=== PATIENT | female | born 1960 | race Caucasian/White ===

== ENCOUNTER 2018-06-22 03:47 | Inpatient (IN) | payer OTHER ==
[2018-06-22] MEDS ORDERED: NACL 0.9% 3 ML SYG IV (06:30)
[2018-06-22] MEDS: DEXTROSE 5%-0.45% NACL 1,000 ML IV (06:48)
[2018-06-22] MEDS: SOD CHLORIDE 0.9% 500 ML IV (07:52)
[2018-06-22 09:44] LABS: ADD MAN DIFF? NO
[2018-06-22 09:50] LABS: WHITE BLOOD COUNT 3.8 10^3/ul (4.8-10.8)
[2018-06-22 09:50] LABS: ABNORMAL IP MESSAGE 1; BASOPHILS % 0.5 % (0.0-2.0); EOSINOPHILS % 0.3 % (0.0-7.0); HEMATOCRIT 43.9 % (37.0-47.0); HEMOGLOBIN 14.2 g/dl (12.0-16.0); LYMPHOCYTES # 0.4 10^3/ul (0.8-2.9); LYMPHOCYTES % 9.4 % (15.0-51.0); MEAN CORPUSCULAR HEMOGLOBIN 28.6 pg (29.0-33.0); MEAN CORPUSCULAR HGB CONC 32.3 g/dl (32.0-37.0); MEAN CORPUSCULAR VOLUME 88.5 fl (82.0-101.0); MEAN PLATELET VOLUME 11.2 fl (7.4-10.4); MONOCYTE # 0.1 10^3/ul (0.3-0.9); MONOCYTES % 3.4 % (0.0-11.0); NEUTROPHIL # 3.3 10^3/ul (1.6-7.5); NEUTROPHILS % 86.1 % (39.0-77.0); PLATELET COUNT 159 10^3/UL (140-415); RED BLOOD COUNT 4.96 10^6/ul (4.20-5.40); RED CELL DISTRIBUTION WIDTH 13.2 % (11.5-14.5)
[2018-06-22 09:51] LABS: POSITIVE DIFF @See below
[2018-06-22] MEDS: SOD CHLORIDE 0.9% 1,000 ML IV ×4 (10:13→22:53)
[2018-06-22 10:23] LABS: ALANINE AMINOTRANSFERASE 121 IU/L (13-69); ALBUMIN/GLOBULIN RATIO 1.25; ALKALINE PHOSPHATASE 63 IU/L (42-121); ANION GAP 13 (5-13); ASPARTATE AMINO TRANSFERASE 92 IU/L (15-46); BLOOD UREA NITROGEN 27 mg/dl (7-20); CALCIUM 7.5 mg/dl (8.4-10.2); CARBON DIOXIDE 21 mmol/L (21-31); CHLORIDE 108 mmol/L (97-110); CHOL/HDL RATIO 2.2 RATIO; CHOLESTEROL 118 mg/dl (100-200); CREATININE 1.17 mg/dl (0.44-1.00); Estimated GFR 48 mL/min (>60); GLUCOSE 115 mg/dl (70-220); HDL CHOLESTEROL 53 mg/dl (37-92); LDL CHOLESTEROL,CALCULATED 53 mg/dl; POTASSIUM 3.7 mmol/L (3.5-5.1); SODIUM 142 mmol/L (135-144); TOTAL PROTEIN 5.4 g/dl (6.1-8.1); TRIGLYCERIDES 61 mg/dl (0-149)
[2018-06-22 10:24] LABS: HEMOGLOBIN A1C 5.4 % (0-5.9)
[2018-06-22 10:46] LABS: ANISOCYTOSIS 1+ (0-0); BAND NEUTROPHILS #M 0.4 10^3/ul (0.0-0.6); BAND NEUTROPHILS % (M) 12 % (0-4); BURR CELLS 1+ (0-0); EOSINOPHILS % (M) 2 % (0-7); LYMPHOCYTES #M 0.2 10^3/ul (0.8-2.9); LYMPHOCYTES % (M) 6 % (15-51); MICROCYTOSIS 1+ (0-0); MONOCYTE #M 0.1 10^3/ul (0.3-0.9); MONOCYTES % (M) 4 % (0-11); PLATELET ESTIMATE NORMAL; POIKILOCYTOSIS 1+ (0-0); POLYCHROMASIA 1+ (0-0); SEG NEUT #M 2.9 10^3/ul (1.6-7.5); SEGMENTED NEUTROPHILS (M) % 76 % (39-77); SMUDGE%M 5 % (0-0); TEAR DROP CELLS 1+ (0-0)
[2018-06-22] MEDS: morphine 2 MG INJ IV ×2 (11:12→19:24)
[2018-06-22] MEDS: ONDANSETRON 4 MG INJ IV (11:12)
[2018-06-22] MEDS: PIPER-TAZO 3.375 GM IV (PMX) 100 ML IVPB ×2 (13:10→17:21)
[2018-06-22] MEDS: LEVOTHYROXINE 100 MCG VIAL IV (13:11)
[2018-06-22] MEDS: ACETAMINOPHEN 1000MG/100ML IV 100 ML IVPB ×2 (13:21→23:25)
[2018-06-22] MEDS ORDERED: BARIUM SULF 2% 450 ML BTL (BERRY SMOOTHIE) PO (13:30)
[2018-06-22] MEDS: IOHEXOL 100 ML (14:24)
[2018-06-22] MEDS: SOD CHLORIDE 0.9% 100 ML (14:24)
[2018-06-22] MEDS: BARIUM SULF 2% 450 ML BTL (BERRY SMOOTHIE) PO (14:30)
[2018-06-22 16:10] LABS: LACTIC ACID 2.1 mmol/L (0.5-2.0)
[2018-06-23] MEDS: PIPER-TAZO 3.375 GM IV (PMX) 100 ML IVPB ×3 (00:14→11:44)
[2018-06-23] MEDS: SOD CHLORIDE 0.9% 1,000 ML IV ×4 (01:09→17:32)
[2018-06-23] MEDS: LEVOTHYROXINE 100 MCG VIAL IV (05:45)
[2018-06-23 06:36] LABS: WHITE BLOOD COUNT 4.7 10^3/ul (4.8-10.8)
[2018-06-23 06:36] LABS: ABNORMAL IP MESSAGE 1; HEMATOCRIT 39.5 % (37.0-47.0); HEMOGLOBIN 12.9 g/dl (12.0-16.0); MEAN CORPUSCULAR HEMOGLOBIN 28.9 pg (29.0-33.0); MEAN CORPUSCULAR HGB CONC 32.7 g/dl (32.0-37.0); MEAN CORPUSCULAR VOLUME 88.6 fl (82.0-101.0); MEAN PLATELET VOLUME 11.4 fl (7.4-10.4); PLATELET COUNT 127 10^3/UL (140-415); RED BLOOD COUNT 4.46 10^6/ul (4.20-5.40); RED CELL DISTRIBUTION WIDTH 13.5 % (11.5-14.5)
[2018-06-23 06:47] LABS: ADD MAN DIFF? YES; POSITIVE DIFF @See below
[2018-06-23 07:08] LABS: ANION GAP 9 (5-13); BLOOD UREA NITROGEN 29 mg/dl (7-20); CALCIUM 6.7 mg/dl (8.4-10.2); CARBON DIOXIDE 23 mmol/L (21-31); CHLORIDE 109 mmol/L (97-110); CREATININE 1.11 mg/dl (0.44-1.00); Estimated GFR 51 mL/min (>60); GLUCOSE 86 mg/dl (70-220); MAGNESIUM 1.7 mg/dl (1.7-2.5); PHOSPHORUS 3.8 mg/dl (2.5-4.9); POTASSIUM 3.8 mmol/L (3.5-5.1); SODIUM 141 mmol/L (135-144)
[2018-06-23 07:28] LABS: LIPASE 1893 U/L (23-300)
[2018-06-23 07:29] LABS: HEPATITIS B SURFACE ANTIGEN NEGATIVE (NEGATIVE)
[2018-06-23 07:47] LABS: HEPATITIS C VIRAL ANTIBODY NEGATIVE (NEGATIVE)
[2018-06-23] MEDS: morphine 2 MG INJ IV (08:34)
[2018-06-23] MEDS: ONDANSETRON 4 MG INJ IV (08:36)
[2018-06-23 09:57] LABS: ANISOCYTOSIS 1+ (0-0); BAND NEUTROPHILS #M 1.8 10^3/ul (0.0-0.6); BAND NEUTROPHILS % (M) 40 % (0-4); BASOPHILS % (M) 1 % (0-2); ERYTHROBLAST% (NRBC) (M) 1 % (0-0); GIANT THROMBO% (M) 2 % (0-0); LYMPHOCYTES #M 0.9 10^3/ul (0.8-2.9); LYMPHOCYTES % (M) 20 % (15-51); METAMYELOCYTES #M 0.4 10^3/ul (0.0-0.0); METAMYELOCYTES %M 9 % (0-0); MONOCYTE #M 0.6 10^3/ul (0.3-0.9); MONOCYTES % (M) 14 % (0-11); MYELOCYTES % (M) 2 % (0-0); PLATELET ESTIMATE DECREASED; POLYCHROMASIA 1+ (0-0); REACTIVE LYMPHOCYTES% (M) 2 % (0-0); SEG NEUT #M 0.6 10^3/ul (1.6-7.5); SEGMENTED NEUTROPHILS (M) % 12 % (39-77); SMUDGE%M 9 % (0-0)
[2018-06-23 11:54] LABS: ALANINE AMINOTRANSFERASE 79 IU/L (13-69); ALBUMIN 2.6 g/dl (3.3-4.9); ALKALINE PHOSPHATASE 50 IU/L (42-121); ASPARTATE AMINO TRANSFERASE 53 IU/L (15-46); BILIRUBIN,INDIRECT 0.9 mg/dl (0-1.1); BILIRUBIN,TOTAL 0.9 mg/dl (0.2-1.3)
[2018-06-23 11:56] LABS: LACTIC ACID 1.7 mmol/L (0.5-2.0)
[2018-06-23] MEDS: LORAZEPAM 2 MG INJ IV (12:25)
[2018-06-23] MEDS ORDERED: VITAMIN A & D 5 GM OINT PACKET TOP (12:39)
[2018-06-23] MEDS: ACETAMINOPHEN 1000MG/100ML IV 100 ML IVPB (13:43)
[2018-06-23] MEDS ORDERED: MEROPENEM 1 GM/50ML(PMX) 50 ML IVPB ×2 (20:00→22:00)
[2018-06-23] MEDS: MEROPENEM 1 GM/50ML(PMX) 50 ML IVPB (21:54)
[2018-06-24] MEDS: SOD CHLORIDE 0.9% 1,000 ML IV ×5 (00:04→14:03)
[2018-06-24] MEDS: LORAZEPAM 2 MG INJ IV ×2 (02:08→15:55)
[2018-06-24] MEDS: morphine 2 MG INJ IV ×2 (04:07→23:58)
[2018-06-24 05:20] LABS: WHITE BLOOD COUNT 5.4 10^3/ul (4.8-10.8)
[2018-06-24 05:20] LABS: ABNORMAL IP MESSAGE 1; HEMATOCRIT 35.2 % (37.0-47.0); HEMOGLOBIN 11.5 g/dl (12.0-16.0); MEAN CORPUSCULAR HEMOGLOBIN 28.7 pg (29.0-33.0); MEAN CORPUSCULAR HGB CONC 32.7 g/dl (32.0-37.0); MEAN CORPUSCULAR VOLUME 87.8 fl (82.0-101.0); MEAN PLATELET VOLUME 11.3 fl (7.4-10.4); PLATELET COUNT 113 10^3/UL (140-415); RED BLOOD COUNT 4.01 10^6/ul (4.20-5.40); RED CELL DISTRIBUTION WIDTH 13.6 % (11.5-14.5)
[2018-06-24] MEDS: MEROPENEM 1 GM/50ML(PMX) 50 ML IVPB ×3 (05:42→22:18)
[2018-06-24] MEDS: LEVOTHYROXINE 100 MCG VIAL IV (05:42)
[2018-06-24 05:45] LABS: ADD MAN DIFF? YES; POSITIVE DIFF @See below
[2018-06-24 06:24] LABS: ALANINE AMINOTRANSFERASE 54 IU/L (13-69); ALBUMIN 2.9 g/dl (3.3-4.9); ALBUMIN/GLOBULIN RATIO 1.03; ALKALINE PHOSPHATASE 70 IU/L (42-121); ANION GAP 13 (5-13); ASPARTATE AMINO TRANSFERASE 50 IU/L (15-46); BILIRUBIN,INDIRECT 0.7 mg/dl (0-1.1); BILIRUBIN,TOTAL 0.7 mg/dl (0.2-1.3); BLOOD UREA NITROGEN 18 mg/dl (7-20); CALCIUM 6.8 mg/dl (8.4-10.2); CARBON DIOXIDE 18 mmol/L (21-31); CHLORIDE 116 mmol/L (97-110); CREATININE 0.71 mg/dl (0.44-1.00); Estimated GFR > 60 mL/min (>60); GLUCOSE 82 mg/dl (70-220); POTASSIUM 3.4 mmol/L (3.5-5.1); SODIUM 147 mmol/L (135-144); TOTAL PROTEIN 5.7 g/dl (6.1-8.1)
[2018-06-24 06:34] LABS: LIPASE 709 U/L (23-300)
[2018-06-24] MEDS ORDERED: ETOMIDATE 20 MG INJ (07:00)
[2018-06-24] MEDS ORDERED: ROCURONIUM 50 MG INJ (07:00)
[2018-06-24 07:50] LABS: ANISOCYTOSIS 1+ (0-0); BAND NEUTROPHILS #M 2.5 10^3/ul (0.0-0.6); BAND NEUTROPHILS % (M) 47 % (0-4); BURR CELLS 1+ (0-0); ERYTHROBLAST% (NRBC) (M) 1 % (0-0); LYMPHOCYTES #M 0.5 10^3/ul (0.8-2.9); LYMPHOCYTES % (M) 11 % (15-51); METAMYELOCYTES %M 1 % (0-0); MICROCYTOSIS 1+ (0-0); MONOCYTE #M 0.2 10^3/ul (0.3-0.9); MONOCYTES % (M) 5 % (0-11); MYELOCYTES #M 0.1 10^3/ul (0.0-0.0); MYELOCYTES % (M) 2 % (0-0); PLATELET ESTIMATE DECREASED; POIKILOCYTOSIS 2+ (0-0); REACTIVE LYMPHOCYTES% (M) 1 % (0-0); SEG NEUT #M 1.9 10^3/ul (1.6-7.5); SEGMENTED NEUTROPHILS (M) % 33 % (39-77); SMUDGE%M 4 % (0-0); TOXIC GRANULATION 1+ (0-0)
[2018-06-24] MEDS ORDERED: GLUCOSE GEL 15 GRAM TUBE PO ×2 (09:00)
[2018-06-24] MEDS ORDERED: GLUCAGON 1 MG INJ IM (09:00)
[2018-06-24] MEDS ORDERED: DEXTROSE 50% 50 ML SYRINGE IV ×2 (09:00)
[2018-06-24] MEDS ORDERED: GLUCOSE GEL 15 GRAM TUBE BUCCAL (09:00)
[2018-06-24] MEDS: DEXTROSE 5%-0.45% NACL 1,000 ML IV (09:17)
[2018-06-24] MEDS ORDERED: INSULIN ASPART [NOVOLOG] 3 ML PEN SC (11:30)
[2018-06-24 11:55] LABS: ADD UMIC YES; UR AMORPHOUS CRYSTAL FEW /HPF (NONE SEEN); UR ASCORBIC ACID NEGATIVE (NEGATIVE); UR BACTERIA FEW /HPF (NONE SEEN); UR BILIRUBIN (Dip) NEGATIVE (NEGATIVE); UR BLOOD (Dip) 3+ mg/dL (NEGATIVE); UR CLARITY SLIGHTLY CLOUDY (CLEAR); UR COLOR YELLOW (YELLOW); UR GLUCOSE (Dip) 1+ mg/dL (NEGATIVE); UR KETONES (Dip) 2+ mg/dL (NEGATIVE); UR LEUKOCYTE ESTERASE (Dip) NEGATIVE Leu/ul (NEGATIVE); UR NITRITE (Dip) NEGATIVE (NEGATIVE); UR RBC 152 /HPF (0-5); UR SPECIFIC GRAVITY (Dip) 1.019 (1.003-1.030); UR SQUAMOUS EPITHELIAL CELL FEW /HPF (FEW); UR TOTAL PROTEIN (Dip) 2+ mg/dl (NEGATIVE); UR UROBILINOGEN (Dip) NEGATIVE (NEGATIVE); UR WBC 9 /HPF (0-5)
[2018-06-24 13:00] LABS: LACTIC ACID 0.8 mmol/L (0.5-2.0)
[2018-06-24] MEDS: CALCIUM GLUCONATE 10% 1 GM in DEXTROSE 5% 100 ML IVPB (15:34)
[2018-06-24 17:00] LABS: AADO2 Arterial 88.5 mmHg (7.0-24.0); Allen Test ACCEPTAB; Arterial Base Excess -10.7 mmol/L (-3.0-3); Arterial COHb 0.3 % (0.0-3.0); Arterial Fraction of Oxyhgb 95.3 % (93.0-99.0); Arterial HCO3 17.2 mmol/L (22.0-26.0); Arterial MetHb 0.4 % (0.0-1.5); Arterial Total Hemglobin 12.4 g/dl (12.0-18.0); Arterial pCO2 46.3 mmhg (35-45); MODE NASAL CANNULA; Site Left Radial
[2018-06-24] MEDS ORDERED: FUROSEMIDE 40 MG INJ (17:12)
[2018-06-24] MEDS ORDERED: NA BICARBONATE 8.4% 50 ML SYG (17:13)
[2018-06-24 17:25] LABS: B-TYPE NATRIURETIC PEPTIDE 3640 PG/ML (0-125)
[2018-06-24] MEDS ORDERED: PROPOFOL 100 ML (17:38)
[2018-06-24] MEDS: PROPOFOL 100 ML IV (17:49)
[2018-06-24] MEDS: FUROSEMIDE 40 MG INJ IV (17:50)
[2018-06-24] MEDS: NA BICARBONATE 8.4% 50 ML SYG IV (17:51)
[2018-06-24] MEDS: HALOPERIDOL 5 MG INJ IM (17:52)
[2018-06-24] MEDS ORDERED: PROPOFOL 100 ML IV (18:00)
[2018-06-24 19:27] LABS: ALANINE AMINOTRANSFERASE 52 IU/L (13-69); ALBUMIN 3.3 g/dl (3.3-4.9); ALBUMIN/GLOBULIN RATIO 1.03; ALKALINE PHOSPHATASE 88 IU/L (42-121); ANION GAP 14 (5-13); ASPARTATE AMINO TRANSFERASE 50 IU/L (15-46); BILIRUBIN,INDIRECT 0.7 mg/dl (0-1.1); BILIRUBIN,TOTAL 0.7 mg/dl (0.2-1.3); BLOOD UREA NITROGEN 17 mg/dl (7-20); CALCIUM 7.6 mg/dl (8.4-10.2); CARBON DIOXIDE 18 mmol/L (21-31); CHLORIDE 115 mmol/L (97-110); CREATININE 0.68 mg/dl (0.44-1.00); Estimated GFR > 60 mL/min (>60); GLUCOSE 115 mg/dl (70-220); SODIUM 147 mmol/L (135-144); TOTAL PROTEIN 6.5 g/dl (6.1-8.1)
[2018-06-24 19:33] LABS: POTASSIUM 2.9 mmol/L (3.5-5.1)
[2018-06-24 20:21] LABS: ADD UMIC YES; UR ASCORBIC ACID NEGATIVE (NEGATIVE); UR BACTERIA FEW /HPF (NONE SEEN); UR BILIRUBIN (Dip) NEGATIVE (NEGATIVE); UR BLOOD (Dip) 3+ mg/dL (NEGATIVE); UR CLARITY CLOUDY (CLEAR); UR COLOR RED (YELLOW); UR GLUCOSE (Dip) NEGATIVE (NEGATIVE); UR KETONES (Dip) TRACE mg/dL (NEGATIVE); UR LEUKOCYTE ESTERASE (Dip) NEGATIVE Leu/ul (NEGATIVE); UR NITRITE (Dip) NEGATIVE (NEGATIVE); UR RBC > 182 /HPF (0-5); UR SPECIFIC GRAVITY (Dip) 1.006 (1.003-1.030); UR TOTAL PROTEIN (Dip) 2+ mg/dl (NEGATIVE); UR UROBILINOGEN (Dip) NEGATIVE (NEGATIVE); UR WBC 14 /HPF (0-5)
[2018-06-24 21:14] LABS: AADO2 Arterial 279.7 mmHg (7.0-24.0); Allen Test ACCEPTAB; Arterial Base Excess -5.2 mmol/L (-3.0-3); Arterial Blood Gas Oxygen Sat 99.1 mmHG (95.0-98.0); Arterial COHb 0.3 % (0.0-3.0); Arterial Fraction of Oxyhgb 98.6 % (93.0-99.0); Arterial MetHb 0.2 % (0.0-1.5); Arterial Total Hemglobin 11.7 g/dl (12.0-18.0); Arterial pCO2 38.1 mmhg (35-45); MODE VENT - AC; Site Right Radial
[2018-06-24] MEDS: POTASSIUM CHLORIDE 100 ML IVPB (21:24)
[2018-06-25] MEDS: POTASSIUM CHLORIDE 100 ML IVPB ×2 (00:28→01:57)
[2018-06-25] MEDS: LORAZEPAM 2 MG INJ IV (00:37)
[2018-06-25 01:24] LABS: AADO2 Arterial 103.4 mmHg (7.0-24.0); Allen Test ACCEPTAB; Arterial Base Excess -2.9 mmol/L (-3.0-3); Arterial Blood Gas Oxygen Sat 95.6 mmHG (95.0-98.0); Arterial COHb 0.3 % (0.0-3.0); Arterial Fraction of Oxyhgb 95.1 % (93.0-99.0); Arterial MetHb 0.2 % (0.0-1.5); Arterial Total Hemglobin 11.6 g/dl (12.0-18.0); Arterial pCO2 44.3 mmhg (35-45); MODE NASAL CANNULA; Site Right Radial
[2018-06-25] MEDS ORDERED: ACCU-CHEK XX (02:00)
[2018-06-25] MEDS: morphine 2 MG INJ IV ×4 (04:49→22:19)
[2018-06-25 05:53] LABS: WHITE BLOOD COUNT 5.7 10^3/ul (4.8-10.8)
[2018-06-25 05:53] LABS: ABNORMAL IP MESSAGE 1; HEMATOCRIT 32.3 % (37.0-47.0); HEMOGLOBIN 10.8 g/dl (12.0-16.0); MEAN CORPUSCULAR HGB CONC 33.4 g/dl (32.0-37.0); MEAN CORPUSCULAR VOLUME 86.8 fl (82.0-101.0); MEAN PLATELET VOLUME 11.2 fl (7.4-10.4); NUCLEATED RED BLOOD CELLS% 0.3 /100WBC (0.0-0.0); PLATELET COUNT 91 10^3/UL (140-415); RED BLOOD COUNT 3.72 10^6/ul (4.20-5.40); RED CELL DISTRIBUTION WIDTH 14.2 % (11.5-14.5)
[2018-06-25] MEDS: PROPOFOL 100 ML IV (06:00)
[2018-06-25 06:05] LABS: ADD MAN DIFF? YES; POSITIVE DIFF @See below
[2018-06-25 06:09] LABS: AMYLASE 95 U/L (11-123)
[2018-06-25 06:12] LABS: ANION GAP 7 (5-13); BLOOD UREA NITROGEN 17 mg/dl (7-20); CALCIUM 7.7 mg/dl (8.4-10.2); CARBON DIOXIDE 25 mmol/L (21-31); CHLORIDE 115 mmol/L (97-110); CREATININE 0.78 mg/dl (0.44-1.00); Estimated GFR > 60 mL/min (>60); GLUCOSE 101 mg/dl (70-220); MAGNESIUM 2.2 mg/dl (1.7-2.5); PHOSPHORUS 1.2 mg/dl (2.5-4.9); POTASSIUM 3.3 mmol/L (3.5-5.1); SODIUM 147 mmol/L (135-144)
[2018-06-25] MEDS: SOD CHLORIDE 0.9% 1,000 ML IV (06:53)
[2018-06-25] MEDS: MEROPENEM 1 GM/50ML(PMX) 50 ML IVPB ×3 (06:57→21:24)
[2018-06-25] MEDS: LEVOTHYROXINE 100 MCG VIAL IV (06:57)
[2018-06-25 07:08] LABS: ANISOCYTOSIS 1+ (0-0); BAND NEUTROPHILS #M 0.1 10^3/ul (0.0-0.6); BAND NEUTROPHILS % (M) 2 % (0-4); ERYTHROBLAST% (NRBC) (M) 3 % (0-0); GIANT THROMBO% (M) 1 % (0-0); LYMPHOCYTES #M 1.2 10^3/ul (0.8-2.9); LYMPHOCYTES % (M) 22 % (15-51); MICROCYTOSIS 1+ (0-0); MONOCYTE #M 0.4 10^3/ul (0.3-0.9); MONOCYTES % (M) 8 % (0-11); PLATELET ESTIMATE DECREASED; REACTIVE LYMPHOCYTES #M 0.1 10^3/ul (0.0-0.0); REACTIVE LYMPHOCYTES% (M) 3 % (0-0); SEG NEUT #M 3.7 10^3/ul (1.6-7.5); SEGMENTED NEUTROPHILS (M) % 65 % (39-77); SMUDGE%M 12 % (0-0)
[2018-06-25 07:11] LABS: LIPASE 139 U/L (23-300)
[2018-06-25 07:39] LABS: AADO2 Arterial 76.4 mmHg (7.0-24.0); Allen Test ACCEPTAB; Arterial Base Excess -4.5 mmol/L (-3.0-3); Arterial Blood Gas Oxygen Sat 86.6 mmHG (95.0-98.0); Arterial COHb 0.9 % (0.0-3.0); Arterial Fraction of Oxyhgb 85.6 % (93.0-99.0); Arterial HCO3 23.2 mmol/L (22.0-26.0); Arterial MetHb 0.3 % (0.0-1.5); Arterial Total Hemglobin 13.6 g/dl (12.0-18.0); Arterial pCO2 53.2 mmhg (35-45); MODE NASAL CANNULA; Site Right Radial
[2018-06-25] MEDS: PANTOPRAZOLE 40 MG INJ IV (09:36)
[2018-06-25] MEDS: POTASSIUM PHOSPHATE 30 MM in SOD CHLORIDE 0.9% 250 ML IVPB (10:30)
[2018-06-25] MEDS: D5W-0.45 NACL + KCL 40 MEQ 1,000 ML IV (10:33)
[2018-06-25 11:59] LABS: AADO2 Arterial 207.1 mmHg (7.0-24.0); Allen Test ACCEPTAB; Arterial Base Excess -2.8 mmol/L (-3.0-3); Arterial Blood Gas Oxygen Sat 98.9 mmHG (95.0-98.0); Arterial COHb 0.3 % (0.0-3.0); Arterial Fraction of Oxyhgb 98.2 % (93.0-99.0); Arterial HCO3 23.6 mmol/L (22.0-26.0); Arterial MetHb 0.4 % (0.0-1.5); Arterial Total Hemglobin 11.5 g/dl (12.0-18.0); Blood Gas IEPAP 18/8; Blood Gas PS 10; MODE MASK - BIPAP; Site Right Radial
[2018-06-25 12:11] LABS: ANA PATTERN SPECKLED; ANA SCREEN POSITIVE (NEGATIVE)
[2018-06-25] MEDS: HALOPERIDOL 5 MG INJ IM ×2 (13:07→23:30)
[2018-06-26] MEDS: D5W-0.45 NACL + KCL 40 MEQ 1,000 ML IV (00:34)
[2018-06-26] MEDS: LORAZEPAM 2 MG INJ IV ×2 (03:46→04:39)
[2018-06-26] MEDS: HALOPERIDOL 5 MG INJ IM ×2 (04:39→11:01)
[2018-06-26] MEDS: MEROPENEM 1 GM/50ML(PMX) 50 ML IVPB ×3 (05:02→22:02)
[2018-06-26] MEDS: PANTOPRAZOLE 40 MG INJ IV (05:02)
[2018-06-26] MEDS: LEVOTHYROXINE 100 MCG VIAL IV (05:03)
[2018-06-26 05:10] LABS: ABNORMAL IP MESSAGE 1; HEMATOCRIT 30.1 % (37.0-47.0); HEMOGLOBIN 9.9 g/dl (12.0-16.0); MEAN CORPUSCULAR HEMOGLOBIN 28.6 pg (29.0-33.0); MEAN CORPUSCULAR HGB CONC 32.9 g/dl (32.0-37.0); MEAN PLATELET VOLUME 10.6 fl (7.4-10.4); PLATELET COUNT 79 10^3/UL (140-415); RED BLOOD COUNT 3.46 10^6/ul (4.20-5.40); RED CELL DISTRIBUTION WIDTH 14.8 % (11.5-14.5)
[2018-06-26 05:10] LABS: WHITE BLOOD COUNT 7.3 10^3/ul (4.8-10.8)
[2018-06-26 05:11] LABS: ADD MAN DIFF? YES; POSITIVE DIFF @See below
[2018-06-26] MEDS: ACETAMINOPHEN 1000MG/100ML IV 100 ML IVPB ×2 (05:15→16:09)
[2018-06-26 05:42] LABS: ALANINE AMINOTRANSFERASE 51 IU/L (13-69); ALBUMIN 2.6 g/dl (3.3-4.9); ALBUMIN/GLOBULIN RATIO 0.96; ALKALINE PHOSPHATASE 68 IU/L (42-121); ANION GAP 3 (5-13); ASPARTATE AMINO TRANSFERASE 50 IU/L (15-46); BILIRUBIN,INDIRECT 0.5 mg/dl (0-1.1); BILIRUBIN,TOTAL 0.5 mg/dl (0.2-1.3); BLOOD UREA NITROGEN 12 mg/dl (7-20); CALCIUM 7.8 mg/dl (8.4-10.2); CARBON DIOXIDE 32 mmol/L (21-31); CHLORIDE 118 mmol/L (97-110); CREATININE 0.52 mg/dl (0.44-1.00); Estimated GFR > 60 mL/min (>60); GLUCOSE 142 mg/dl (70-220); MAGNESIUM 2.1 mg/dl (1.7-2.5); POTASSIUM 3.5 mmol/L (3.5-5.1); SODIUM 153 mmol/L (135-144); TOTAL PROTEIN 5.3 g/dl (6.1-8.1)
[2018-06-26 07:09] LABS: ANISOCYTOSIS 1+ (0-0); BAND NEUTROPHILS #M 2.7 10^3/ul (0.0-0.6); BAND NEUTROPHILS % (M) 38 % (0-4); EOSINOPHILS % (M) 1 % (0-7); LYMPHOCYTES % (M) 14 % (15-51); METAMYELOCYTES %M 1 % (0-0); MONOCYTE #M 0.2 10^3/ul (0.3-0.9); MONOCYTES % (M) 4 % (0-11); PLATELET ESTIMATE DECREASED; POIKILOCYTOSIS 1+ (0-0); REACTIVE LYMPHOCYTES #M 0.4 10^3/ul (0.0-0.0); REACTIVE LYMPHOCYTES% (M) 6 % (0-0); SEG NEUT #M 2.8 10^3/ul (1.6-7.5); SEGMENTED NEUTROPHILS (M) % 36 % (39-77); SMUDGE%M 62 % (0-0); TOXIC GRANULATION 1+ (0-0)
[2018-06-26 07:57] LABS: AADO2 Arterial 81.4 mmHg (7.0-24.0); Arterial Base Excess 4.1 mmol/L (-3.0-3); Arterial Blood Gas Oxygen Sat 98.6 mmHG (95.0-98.0); Arterial COHb 0.3 % (0.0-3.0); Arterial HCO3 29.7 mmol/L (22.0-26.0); Arterial MetHb 0.3 % (0.0-1.5); Arterial Total Hemglobin 10.6 g/dl (12.0-18.0); Arterial pCO2 49.9 mmhg (35-45); MODE MASK - SIMPLE; Site Right Brachial
[2018-06-26] MEDS: morphine 2 MG INJ IV ×3 (08:15→22:18)
[2018-06-26] MEDS: D5W + KCL 20 MEQ 1,000 ML IV ×2 (09:36→22:05)
[2018-06-26 11:33] LABS: MITOCHONDRIAL TB NEGATIVE (NEGATIVE); SMOOTH MUSCLE AB SCREEN NEGATIVE (NEGATIVE)
[2018-06-26] MEDS ORDERED: POTASSIUM CHLORIDE 50 ML IVPB (17:30)
[2018-06-27] MEDS: HALOPERIDOL 5 MG INJ IM ×3 (00:01→09:36)
[2018-06-27] MEDS: morphine 2 MG INJ IV ×4 (01:57→20:32)
[2018-06-27 05:09] LABS: ABNORMAL IP MESSAGE 1; HEMATOCRIT 31.7 % (37.0-47.0); HEMOGLOBIN 10.4 g/dl (12.0-16.0); MEAN CORPUSCULAR HEMOGLOBIN 28.3 pg (29.0-33.0); MEAN CORPUSCULAR HGB CONC 32.8 g/dl (32.0-37.0); MEAN CORPUSCULAR VOLUME 86.4 fl (82.0-101.0); MEAN PLATELET VOLUME 11.1 fl (7.4-10.4); PLATELET COUNT 91 10^3/UL (140-415); RED BLOOD COUNT 3.67 10^6/ul (4.20-5.40); RED CELL DISTRIBUTION WIDTH 14.7 % (11.5-14.5)
[2018-06-27 05:09] LABS: WHITE BLOOD COUNT 9.1 10^3/ul (4.8-10.8)
[2018-06-27] MEDS: PANTOPRAZOLE 40 MG INJ IV ×2 (05:12→06:32)
[2018-06-27] MEDS: MEROPENEM 1 GM/50ML(PMX) 50 ML IVPB ×3 (05:12→22:24)
[2018-06-27] MEDS: LEVOTHYROXINE 100 MCG VIAL IV ×2 (05:12→06:32)
[2018-06-27 05:46] LABS: ALANINE AMINOTRANSFERASE 51 IU/L (13-69); ALBUMIN 2.5 g/dl (3.3-4.9); ALKALINE PHOSPHATASE 78 IU/L (42-121); ANION GAP 2 (5-13); ASPARTATE AMINO TRANSFERASE 50 IU/L (15-46); BILIRUBIN,INDIRECT 0.3 mg/dl (0-1.1); BILIRUBIN,TOTAL 0.3 mg/dl (0.2-1.3); BLOOD UREA NITROGEN 11 mg/dl (7-20); CALCIUM 7.8 mg/dl (8.4-10.2); CARBON DIOXIDE 36 mmol/L (21-31); CHLORIDE 111 mmol/L (97-110); CREATININE 0.39 mg/dl (0.44-1.00); Estimated GFR > 60 mL/min (>60); GLUCOSE 127 mg/dl (70-220); MAGNESIUM 1.8 mg/dl (1.7-2.5); POTASSIUM 3.5 mmol/L (3.5-5.1); SODIUM 149 mmol/L (135-144)
[2018-06-27 05:48] LABS: POSITIVE DIFF @See below
[2018-06-27 05:49] LABS: ADD MAN DIFF? YES
[2018-06-27 09:40] LABS: ANISOCYTOSIS 1+ (0-0); BAND NEUTROPHILS % (M) 34 % (0-4); EOSINOPHILS % (M) 1 % (0-7); LYMPHOCYTES #M 0.9 10^3/ul (0.8-2.9); LYMPHOCYTES % (M) 10 % (15-51); MICROCYTOSIS 1+ (0-0); MONOCYTE #M 0.2 10^3/ul (0.3-0.9); MONOCYTES % (M) 3 % (0-11); MYELOCYTES #M 0.1 10^3/ul (0.0-0.0); MYELOCYTES % (M) 2 % (0-0); PLATELET ESTIMATE DECREASED; REACTIVE LYMPHOCYTES #M 0.4 10^3/ul (0.0-0.0); REACTIVE LYMPHOCYTES% (M) 5 % (0-0); SEG NEUT #M 4.4 10^3/ul (1.6-7.5); SEGMENTED NEUTROPHILS (M) % 45 % (39-77); SMUDGE%M 3 % (0-0)
[2018-06-27] MEDS: D5W + KCL 20 MEQ 1,000 ML IV (11:23)
[2018-06-27] MEDS: POTASSIUM CHLORIDE 50 ML IVPB ×2 (12:42→13:56)
[2018-06-27] MEDS ORDERED: ALBUTEROL 0.083% (NEB) 2.5 MG/3 ML AMP HHN (15:00)
[2018-06-28] MEDS: D5W + KCL 20 MEQ 1,000 ML IV ×3 (01:30→21:22)
[2018-06-28] MEDS: MEROPENEM 1 GM/50ML(PMX) 50 ML IVPB ×3 (05:25→21:22)
[2018-06-28 06:51] LABS: HEMATOCRIT 32.3 % (37.0-47.0); HEMOGLOBIN 10.4 g/dl (12.0-16.0); MEAN CORPUSCULAR HEMOGLOBIN 28.5 pg (29.0-33.0); MEAN CORPUSCULAR HGB CONC 32.2 g/dl (32.0-37.0); MEAN CORPUSCULAR VOLUME 88.5 fl (82.0-101.0); MEAN PLATELET VOLUME 11.3 fl (7.4-10.4); PLATELET COUNT 107 10^3/UL (140-415); RED BLOOD COUNT 3.65 10^6/ul (4.20-5.40); RED CELL DISTRIBUTION WIDTH 14.6 % (11.5-14.5)
[2018-06-28 06:51] LABS: WHITE BLOOD COUNT 7.8 10^3/ul (4.8-10.8)
[2018-06-28 06:54] LABS: ADD MAN DIFF? YES; POSITIVE DIFF @See below
[2018-06-28 07:13] LABS: ALANINE AMINOTRANSFERASE 52 IU/L (13-69); ALBUMIN 2.4 g/dl (3.3-4.9); ALBUMIN/GLOBULIN RATIO 0.85; ALKALINE PHOSPHATASE 86 IU/L (42-121); ANION GAP 5 (5-13); ASPARTATE AMINO TRANSFERASE 63 IU/L (15-46); BILIRUBIN,INDIRECT 0.5 mg/dl (0-1.1); BILIRUBIN,TOTAL 0.5 mg/dl (0.2-1.3); BLOOD UREA NITROGEN 13 mg/dl (7-20); CALCIUM 7.5 mg/dl (8.4-10.2); CARBON DIOXIDE 35 mmol/L (21-31); CHLORIDE 107 mmol/L (97-110); CREATININE 0.41 mg/dl (0.44-1.00); Estimated GFR > 60 mL/min (>60); GLUCOSE 126 mg/dl (70-220); MAGNESIUM 1.8 mg/dl (1.7-2.5); POTASSIUM 3.7 mmol/L (3.5-5.1); SODIUM 147 mmol/L (135-144); TOTAL PROTEIN 5.2 g/dl (6.1-8.1)
[2018-06-28 07:41] LABS: ANISOCYTOSIS 1+ (0-0); BAND NEUTROPHILS #M 0.3 10^3/ul (0.0-0.6); BAND NEUTROPHILS % (M) 4 % (0-4); BASOPHILS % (M) 1 % (0-2); EOSINOPHILS % (M) 1 % (0-7); LYMPHOCYTES #M 2.5 10^3/ul (0.8-2.9); LYMPHOCYTES % (M) 33 % (15-51); MICROCYTOSIS 1+ (0-0); MONOCYTES % (M) 1 % (0-11); PLASMAC%(M) 1 % (0); PLATELET ESTIMATE DECREASED; SEG NEUT #M 4.6 10^3/ul (1.6-7.5); SEGMENTED NEUTROPHILS (M) % 59 % (39-77); SMUDGE%M 17 % (0-0)
[2018-06-28] MEDS: POLYETHYLENE GLYCOL 17 GM PACKET PO (09:05)
[2018-06-28] MEDS: SENNA/DOCUSATE NA (8.6MG/50MG) TAB PO ×2 (12:09→21:28)
[2018-06-28] MEDS: ALBUTEROL/IPRATROPIUM (NEB) 3 ML AMP HHN ×2 (13:47→21:25)
[2018-06-28] MEDS ORDERED: morphine 2 MG INJ IV (14:30)
[2018-06-28] MEDS ORDERED: HALOPERIDOL 5 MG INJ IM (19:00)
[2018-06-29] MEDS: ACETAMINOPHEN 325 MG TAB PO (02:37)
[2018-06-29] MEDS: LEVOTHYROXINE 150 MCG TAB PO (05:11)
[2018-06-29] MEDS: PANTOPRAZOLE 40 MG INJ IV (05:11)
[2018-06-29] MEDS: MEROPENEM 1 GM/50ML(PMX) 50 ML IVPB ×3 (05:11→20:40)
[2018-06-29 08:48] LABS: WHITE BLOOD COUNT 9.8 10^3/ul (4.8-10.8)
[2018-06-29 08:48] LABS: HEMOGLOBIN 11.6 g/dl (12.0-16.0); MEAN CORPUSCULAR HEMOGLOBIN 28.6 pg (29.0-33.0); MEAN CORPUSCULAR HGB CONC 32.2 g/dl (32.0-37.0); MEAN CORPUSCULAR VOLUME 88.7 fl (82.0-101.0); PLATELET COUNT 132 10^3/UL (140-415); RED BLOOD COUNT 4.06 10^6/ul (4.20-5.40); RED CELL DISTRIBUTION WIDTH 14.4 % (11.5-14.5)
[2018-06-29 08:55] LABS: POSITIVE DIFF @See below
[2018-06-29 08:56] LABS: ADD MAN DIFF? YES
[2018-06-29] MEDS: SENNA/DOCUSATE NA (8.6MG/50MG) TAB PO ×2 (09:00→20:39)
[2018-06-29] MEDS: POLYETHYLENE GLYCOL 17 GM PACKET PO (09:00)
[2018-06-29] MEDS: ALBUTEROL/IPRATROPIUM (NEB) 3 ML AMP HHN ×3 (09:07→20:48)
[2018-06-29 09:18] LABS: ALANINE AMINOTRANSFERASE 85 IU/L (13-69); ALBUMIN 2.8 g/dl (3.3-4.9); ALBUMIN/GLOBULIN RATIO 0.93; ALKALINE PHOSPHATASE 117 IU/L (42-121); ANION GAP 5 (5-13); ASPARTATE AMINO TRANSFERASE 131 IU/L (15-46); BILIRUBIN,INDIRECT 0.6 mg/dl (0-1.1); BILIRUBIN,TOTAL 0.6 mg/dl (0.2-1.3); BLOOD UREA NITROGEN 13 mg/dl (7-20); CARBON DIOXIDE 35 mmol/L (21-31); CHLORIDE 99 mmol/L (97-110); Estimated GFR > 60 mL/min (>60); GLUCOSE 154 mg/dl (70-220); MAGNESIUM 1.9 mg/dl (1.7-2.5); POTASSIUM 4.2 mmol/L (3.5-5.1); SODIUM 139 mmol/L (135-144); TOTAL PROTEIN 5.8 g/dl (6.1-8.1)
[2018-06-29 09:49] LABS: ANISOCYTOSIS 1+ (0-0); BAND NEUTROPHILS #M 2.2 10^3/ul (0.0-0.6); BAND NEUTROPHILS % (M) 23 % (0-4); ERYTHROBLAST% (NRBC) (M) 2 % (0-0); LYMPHOCYTES % (M) 11 % (15-51); MICROCYTOSIS 1+ (0-0); MONOCYTE #M 0.1 10^3/ul (0.3-0.9); MONOCYTES % (M) 2 % (0-11); PLATELET ESTIMATE NORMAL; POIKILOCYTOSIS 1+ (0-0); POLYCHROMASIA 1+ (0-0); SEG NEUT #M 6.5 10^3/ul (1.6-7.5); SEGMENTED NEUTROPHILS (M) % 64 % (39-77); SMUDGE%M 5 % (0-0); TOXIC GRANULATION 1+ (0-0)
[2018-06-29 11:26] LABS: ADD UMIC YES; UR ASCORBIC ACID NEGATIVE (NEGATIVE); UR BILIRUBIN (Dip) NEGATIVE (NEGATIVE); UR BLOOD (Dip) 3+ mg/dL (NEGATIVE); UR CLARITY SLIGHTLY CLOUDY (CLEAR); UR COLOR YELLOW (YELLOW); UR GLUCOSE (Dip) NEGATIVE (NEGATIVE); UR KETONES (Dip) NEGATIVE (NEGATIVE); UR LEUKOCYTE ESTERASE (Dip) NEGATIVE Leu/ul (NEGATIVE); UR MUCUS FEW /HPF (NONE SEEN); UR NITRITE (Dip) NEGATIVE (NEGATIVE); UR NONSQUAMOUS EPITHELIAL CELL 3 /HPF (NONE SEEN); UR RBC > 182 /HPF (0-5); UR SPECIFIC GRAVITY (Dip) 1.015 (1.003-1.030); UR SQUAMOUS EPITHELIAL CELL MODERATE /HPF (FEW); UR TOTAL PROTEIN (Dip) 2+ mg/dl (NEGATIVE); UR UROBILINOGEN (Dip) 2+ mg/dL (NEGATIVE); UR WBC 27 /HPF (0-5)
[2018-06-30] MEDS: PANTOPRAZOLE 40 MG INJ IV (05:17)
[2018-06-30] MEDS: LEVOTHYROXINE 150 MCG TAB PO (05:17)
[2018-06-30] MEDS: MEROPENEM 1 GM/50ML(PMX) 50 ML IVPB (05:17)
[2018-06-30] MEDS: ALBUTEROL/IPRATROPIUM (NEB) 3 ML AMP HHN ×3 (07:46→19:41)
[2018-06-30] MEDS: POLYETHYLENE GLYCOL 17 GM PACKET PO (08:30)
[2018-06-30] MEDS: SENNA/DOCUSATE NA (8.6MG/50MG) TAB PO ×2 (08:30→21:00)
[2018-06-30 09:33] LABS: HEMATOCRIT 32.9 % (37.0-47.0); HEMOGLOBIN 10.5 g/dl (12.0-16.0); MEAN CORPUSCULAR HEMOGLOBIN 27.9 pg (29.0-33.0); MEAN CORPUSCULAR HGB CONC 31.9 g/dl (32.0-37.0); MEAN CORPUSCULAR VOLUME 87.3 fl (82.0-101.0); MEAN PLATELET VOLUME 11.3 fl (7.4-10.4); PLATELET COUNT 145 10^3/UL (140-415); RED BLOOD COUNT 3.77 10^6/ul (4.20-5.40); RED CELL DISTRIBUTION WIDTH 14.4 % (11.5-14.5)
[2018-06-30 09:33] LABS: WHITE BLOOD COUNT 9.9 10^3/ul (4.8-10.8)
[2018-06-30 09:34] LABS: ADD MAN DIFF? YES; POSITIVE DIFF @See below
[2018-06-30 09:47] LABS: ALANINE AMINOTRANSFERASE 99 IU/L (13-69); ALBUMIN 2.6 g/dl (3.3-4.9); ALBUMIN/GLOBULIN RATIO 0.89; ALKALINE PHOSPHATASE 124 IU/L (42-121); ANION GAP 6 (5-13); ASPARTATE AMINO TRANSFERASE 120 IU/L (15-46); BILIRUBIN,INDIRECT 0.5 mg/dl (0-1.1); BILIRUBIN,TOTAL 0.5 mg/dl (0.2-1.3); BLOOD UREA NITROGEN 15 mg/dl (7-20); CALCIUM 8.1 mg/dl (8.4-10.2); CARBON DIOXIDE 30 mmol/L (21-31); CHLORIDE 103 mmol/L (97-110); CREATININE 0.52 mg/dl (0.44-1.00); Estimated GFR > 60 mL/min (>60); GLUCOSE 106 mg/dl (70-220); MAGNESIUM 1.9 mg/dl (1.7-2.5); SODIUM 139 mmol/L (135-144); TOTAL PROTEIN 5.5 g/dl (6.1-8.1)
[2018-06-30 10:29] LABS: BAND NEUTROPHILS #M 0.5 10^3/ul (0.0-0.6); BAND NEUTROPHILS % (M) 6 % (0-4); BASOPHILS % (M) 1 % (0-2); EOSINOPHILS % (M) 1 % (0-7); ERYTHROBLAST% (NRBC) (M) 1 % (0-0); LYMPHOCYTES #M 0.4 10^3/ul (0.8-2.9); LYMPHOCYTES % (M) 5 % (15-51); MONOCYTES % (M) 1 % (0-11); MYELOCYTES % (M) 1 % (0-0); PLATELET ESTIMATE NORMAL; SEG NEUT #M 8.5 10^3/ul (1.6-7.5); SEGMENTED NEUTROPHILS (M) % 85 % (39-77); SMUDGE%M 8 % (0-0)
[2018-06-30] MEDS ORDERED: VITAMIN A & D 5 GM OINT PACKET TOP (21:25)
[2018-07-01 05:37] LABS: ALANINE AMINOTRANSFERASE 89 IU/L (13-69); ALBUMIN 2.5 g/dl (3.3-4.9); ALBUMIN/GLOBULIN RATIO 0.86; ALKALINE PHOSPHATASE 134 IU/L (42-121); ANION GAP 5 (5-13); ASPARTATE AMINO TRANSFERASE 90 IU/L (15-46); BILIRUBIN,INDIRECT 0.5 mg/dl (0-1.1); BILIRUBIN,TOTAL 0.5 mg/dl (0.2-1.3); BLOOD UREA NITROGEN 16 mg/dl (7-20); CALCIUM 8.1 mg/dl (8.4-10.2); CARBON DIOXIDE 32 mmol/L (21-31); CHLORIDE 102 mmol/L (97-110); CREATININE 0.56 mg/dl (0.44-1.00); Estimated GFR > 60 mL/min (>60); GLUCOSE 102 mg/dl (70-220); SODIUM 139 mmol/L (135-144); TOTAL PROTEIN 5.4 g/dl (6.1-8.1)
[2018-07-01] MEDS: PANTOPRAZOLE 40 MG INJ IV (06:00)
[2018-07-01] MEDS: LEVOTHYROXINE 150 MCG TAB PO (06:00)
[2018-07-01] MEDS: ALBUTEROL/IPRATROPIUM (NEB) 3 ML AMP HHN ×3 (07:56→19:56)
[2018-07-01] MEDS: SENNA/DOCUSATE NA (8.6MG/50MG) TAB PO ×2 (08:57→20:18)
[2018-07-01] MEDS: POLYETHYLENE GLYCOL 17 GM PACKET PO (08:57)
[2018-07-02 05:50] LABS: ADD MAN DIFF? NO
[2018-07-02 06:02] LABS: WHITE BLOOD COUNT 12.1 10^3/ul (4.8-10.8)
[2018-07-02 06:02] LABS: BASOPHILS % 0.2 % (0.0-2.0); EOSINOPHILS % 0.3 % (0.0-7.0); HEMOGLOBIN 9.7 g/dl (12.0-16.0); LYMPHOCYTES # 1.4 10^3/ul (0.8-2.9); LYMPHOCYTES % 11.7 % (15.0-51.0); MEAN CORPUSCULAR HEMOGLOBIN 28.2 pg (29.0-33.0); MEAN CORPUSCULAR HGB CONC 32.3 g/dl (32.0-37.0); MEAN CORPUSCULAR VOLUME 87.2 fl (82.0-101.0); MEAN PLATELET VOLUME 10.6 fl (7.4-10.4); MONOCYTE # 1.1 10^3/ul (0.3-0.9); MONOCYTES % 8.7 % (0.0-11.0); NEUTROPHIL # 9.4 10^3/ul (1.6-7.5); NEUTROPHILS % 78.4 % (39.0-77.0); PLATELET COUNT 235 10^3/UL (140-415); RED BLOOD COUNT 3.44 10^6/ul (4.20-5.40)
[2018-07-02] MEDS: LEVOTHYROXINE 150 MCG TAB PO (06:06)
[2018-07-02] MEDS: PANTOPRAZOLE 40 MG INJ IV (06:06)
[2018-07-02 06:41] LABS: ALANINE AMINOTRANSFERASE 71 IU/L (13-69); ALBUMIN 2.4 g/dl (3.3-4.9); ALKALINE PHOSPHATASE 139 IU/L (42-121); ANION GAP 7 (5-13); ASPARTATE AMINO TRANSFERASE 73 IU/L (15-46); BILIRUBIN,INDIRECT 0.6 mg/dl (0-1.1); BILIRUBIN,TOTAL 0.6 mg/dl (0.2-1.3); BLOOD UREA NITROGEN 12 mg/dl (7-20); CALCIUM 8.1 mg/dl (8.4-10.2); CARBON DIOXIDE 30 mmol/L (21-31); CHLORIDE 103 mmol/L (97-110); CREATININE 0.53 mg/dl (0.44-1.00); Estimated GFR > 60 mL/min (>60); GLUCOSE 99 mg/dl (70-220); POTASSIUM 3.8 mmol/L (3.5-5.1); SODIUM 140 mmol/L (135-144); TOTAL PROTEIN 5.4 g/dl (6.1-8.1)
[2018-07-02] MEDS: POLYETHYLENE GLYCOL 17 GM PACKET PO (08:49)
[2018-07-02] MEDS: SENNA/DOCUSATE NA (8.6MG/50MG) TAB PO ×2 (08:50→20:35)
[2018-07-02] MEDS: ALBUTEROL/IPRATROPIUM (NEB) 3 ML AMP HHN (08:58)
[2018-07-02 10:40] LABS: ADD UMIC YES; UR ASCORBIC ACID NEGATIVE (NEGATIVE); UR BACTERIA FEW /HPF (NONE SEEN); UR BILIRUBIN (Dip) NEGATIVE (NEGATIVE); UR BLOOD (Dip) 2+ mg/dL (NEGATIVE); UR CLARITY CLEAR (CLEAR); UR COLOR YELLOW (YELLOW); UR GLUCOSE (Dip) NEGATIVE (NEGATIVE); UR KETONES (Dip) TRACE mg/dL (NEGATIVE); UR LEUKOCYTE ESTERASE (Dip) TRACE Leu/ul (NEGATIVE); UR NITRITE (Dip) NEGATIVE (NEGATIVE); UR RBC 17 /HPF (0-5); UR SPECIFIC GRAVITY (Dip) 1.006 (1.003-1.030); UR TOTAL PROTEIN (Dip) NEGATIVE (NEGATIVE); UR UROBILINOGEN (Dip) 1+ mg/dL (NEGATIVE); UR WBC 23 /HPF (0-5)
[2018-07-02] MEDS: BUDESONIDE (NEB) 0.5MG/2ML AMP HHN ×2 (12:00→21:42)
[2018-07-02] MEDS ORDERED: LEVALBUTEROL (NEB) 1.25 MG/0.5 ML AMP HHN (12:00)
[2018-07-02] MEDS: LEVOFLOXACIN 500MG/D5W (PMX) 100 ML IVPB (12:04)
[2018-07-02] MEDS: LEVALBUTEROL (NEB) 1.25 MG/0.5 ML AMP HHN ×2 (14:19→21:42)
[2018-07-03] MEDS: LEVALBUTEROL (NEB) 1.25 MG/0.5 ML AMP HHN ×4 (04:04→19:49)
[2018-07-03 05:21] LABS: ADD MAN DIFF? NO
[2018-07-03 05:26] LABS: WHITE BLOOD COUNT 10.7 10^3/ul (4.8-10.8)
[2018-07-03 05:26] LABS: BASOPHILS % 0.3 % (0.0-2.0); EOSINOPHILS % 0.4 % (0.0-7.0); HEMATOCRIT 31.2 % (37.0-47.0); LYMPHOCYTES # 1.5 10^3/ul (0.8-2.9); LYMPHOCYTES % 13.5 % (15.0-51.0); MEAN CORPUSCULAR HEMOGLOBIN 28.1 pg (29.0-33.0); MEAN CORPUSCULAR HGB CONC 32.1 g/dl (32.0-37.0); MEAN CORPUSCULAR VOLUME 87.6 fl (82.0-101.0); MEAN PLATELET VOLUME 10.2 fl (7.4-10.4); MONOCYTE # 0.9 10^3/ul (0.3-0.9); MONOCYTES % 8.2 % (0.0-11.0); NEUTROPHIL # 8.3 10^3/ul (1.6-7.5); NEUTROPHILS % 76.9 % (39.0-77.0); PLATELET COUNT 291 10^3/UL (140-415); RED BLOOD COUNT 3.56 10^6/ul (4.20-5.40)
[2018-07-03 05:50] LABS: ANION GAP 6 (5-13); BLOOD UREA NITROGEN 10 mg/dl (7-20); CALCIUM 8.2 mg/dl (8.4-10.2); CARBON DIOXIDE 33 mmol/L (21-31); CHLORIDE 100 mmol/L (97-110); CREATININE 0.58 mg/dl (0.44-1.00); Estimated GFR > 60 mL/min (>60); GLUCOSE 113 mg/dl (70-220); MAGNESIUM 2.1 mg/dl (1.7-2.5); SODIUM 139 mmol/L (135-144)
[2018-07-03] MEDS: LEVOTHYROXINE 150 MCG TAB PO (06:05)
[2018-07-03] MEDS: PANTOPRAZOLE (EC) 40 MG TAB PO (06:05)
[2018-07-03] MEDS: BUDESONIDE (NEB) 0.5MG/2ML AMP HHN ×2 (08:27→19:49)
[2018-07-03] MEDS: SENNA/DOCUSATE NA (8.6MG/50MG) TAB PO ×2 (09:34→20:36)
[2018-07-03] MEDS: POLYETHYLENE GLYCOL 17 GM PACKET PO (09:34)
[2018-07-03] MEDS: LEVOFLOXACIN 500 MG TAB PO (11:11)
[2018-07-04] MEDS: LEVALBUTEROL (NEB) 1.25 MG/0.5 ML AMP HHN ×4 (02:10→20:51)
[2018-07-04 05:31] LABS: ADD MAN DIFF? NO
[2018-07-04 05:36] LABS: BASOPHILS % 0.2 % (0.0-2.0); EOSINOPHILS % 0.3 % (0.0-7.0); HEMATOCRIT 29.3 % (37.0-47.0); HEMOGLOBIN 9.5 g/dl (12.0-16.0); LYMPHOCYTES # 1.4 10^3/ul (0.8-2.9); LYMPHOCYTES % 16.1 % (15.0-51.0); MEAN CORPUSCULAR HEMOGLOBIN 28.3 pg (29.0-33.0); MEAN CORPUSCULAR HGB CONC 32.4 g/dl (32.0-37.0); MEAN CORPUSCULAR VOLUME 87.2 fl (82.0-101.0); MONOCYTE # 0.8 10^3/ul (0.3-0.9); MONOCYTES % 8.8 % (0.0-11.0); NEUTROPHIL # 6.5 10^3/ul (1.6-7.5); PLATELET COUNT 367 10^3/UL (140-415); RED BLOOD COUNT 3.36 10^6/ul (4.20-5.40); RED CELL DISTRIBUTION WIDTH 13.8 % (11.5-14.5)
[2018-07-04 05:36] LABS: WHITE BLOOD COUNT 8.8 10^3/ul (4.8-10.8)
[2018-07-04] MEDS: PANTOPRAZOLE (EC) 40 MG TAB PO (06:02)
[2018-07-04] MEDS: LEVOTHYROXINE 150 MCG TAB PO (06:02)
[2018-07-04] MEDS: LEVOFLOXACIN 500 MG TAB PO (06:02)
[2018-07-04 06:12] LABS: ANION GAP 7 (5-13); BLOOD UREA NITROGEN 10 mg/dl (7-20); CARBON DIOXIDE 30 mmol/L (21-31); CHLORIDE 101 mmol/L (97-110); CREATININE 0.47 mg/dl (0.44-1.00); Estimated GFR > 60 mL/min (>60); GLUCOSE 97 mg/dl (70-220); PHOSPHORUS 4.2 mg/dl (2.5-4.9); POTASSIUM 3.9 mmol/L (3.5-5.1); SODIUM 138 mmol/L (135-144)
[2018-07-04] MEDS: SENNA/DOCUSATE NA (8.6MG/50MG) TAB PO ×2 (08:43→21:06)
[2018-07-04] MEDS: POLYETHYLENE GLYCOL 17 GM PACKET PO (08:43)
[2018-07-04] MEDS: BUDESONIDE (NEB) 0.5MG/2ML AMP HHN ×2 (08:52→20:51)
[2018-07-04] MEDS: HYDROXYCHLOROQUINE 200 MG TAB PO ×2 (12:54→21:06)
[2018-07-05] MEDS: ACETAMINOPHEN 325 MG TAB PO (00:37)
[2018-07-05] MEDS: LEVALBUTEROL (NEB) 1.25 MG/0.5 ML AMP HHN ×3 (01:44→14:42)
[2018-07-05 05:29] LABS: ADD MAN DIFF? NO
[2018-07-05 05:38] LABS: WHITE BLOOD COUNT 8.1 10^3/ul (4.8-10.8)
[2018-07-05 05:38] LABS: BASOPHILS % 0.5 % (0.0-2.0); EOSINOPHILS % 0.5 % (0.0-7.0); HEMATOCRIT 30.9 % (37.0-47.0); HEMOGLOBIN 9.9 g/dl (12.0-16.0); LYMPHOCYTES # 1.5 10^3/ul (0.8-2.9); LYMPHOCYTES % 18.7 % (15.0-51.0); MEAN CORPUSCULAR VOLUME 87.3 fl (82.0-101.0); MEAN PLATELET VOLUME 9.6 fl (7.4-10.4); MONOCYTE # 0.7 10^3/ul (0.3-0.9); MONOCYTES % 8.7 % (0.0-11.0); NEUTROPHIL # 5.7 10^3/ul (1.6-7.5); NEUTROPHILS % 70.7 % (39.0-77.0); PLATELET COUNT 442 10^3/UL (140-415); RED BLOOD COUNT 3.54 10^6/ul (4.20-5.40); RED CELL DISTRIBUTION WIDTH 13.5 % (11.5-14.5)
[2018-07-05 06:00] LABS: ALANINE AMINOTRANSFERASE 73 IU/L (13-69); ALBUMIN 2.7 g/dl (3.3-4.9); ALKALINE PHOSPHATASE 171 IU/L (42-121); ASPARTATE AMINO TRANSFERASE 77 IU/L (15-46); BILIRUBIN,INDIRECT 0.5 mg/dl (0-1.1); BILIRUBIN,TOTAL 0.5 mg/dl (0.2-1.3); TOTAL PROTEIN 5.8 g/dl (6.1-8.1)
[2018-07-05 06:19] LABS: ANION GAP 10 (5-13); BLOOD UREA NITROGEN 10 mg/dl (7-20); CALCIUM 8.9 mg/dl (8.4-10.2); CARBON DIOXIDE 29 mmol/L (21-31); CHLORIDE 100 mmol/L (97-110); CREATININE 0.52 mg/dl (0.44-1.00); Estimated GFR > 60 mL/min (>60); GLUCOSE 97 mg/dl (70-220); MAGNESIUM 2.1 mg/dl (1.7-2.5); PHOSPHORUS 4.3 mg/dl (2.5-4.9); SODIUM 139 mmol/L (135-144)
[2018-07-05] MEDS: LEVOTHYROXINE 150 MCG TAB PO (06:29)
[2018-07-05] MEDS: PANTOPRAZOLE (EC) 40 MG TAB PO (06:29)
[2018-07-05] MEDS: LEVOFLOXACIN 500 MG TAB PO (06:31)
[2018-07-05] MEDS: SENNA/DOCUSATE NA (8.6MG/50MG) TAB PO (09:16)
[2018-07-05] MEDS: HYDROXYCHLOROQUINE 200 MG TAB PO (09:16)
[2018-07-05] MEDS: POLYETHYLENE GLYCOL 17 GM PACKET PO (09:16)
[2018-07-05] MEDS: BUDESONIDE (NEB) 0.5MG/2ML AMP HHN (10:29)
== END 2018-07-05 15:45 | disposition home health service (06) | DRG 438 ==
LOC: ICU 06-23 18:08 → TEL 06-28 08:45 → MS1 06-30 17:04 → 6WM 03:47 → TEL 06-27 14:27 → MS1 06-30 17:37
PROC: 0BH17EZ Insertion of Endotracheal Airway into Trachea, Via Natural or Artificial Opening (ICD-10-PCS; principal; 2018-06-24)
PROC: 5A1935Z Respiratory Ventilation, Less than 24 Consecutive Hours (ICD-10-PCS; 2018-06-24)
PROC: 5A09357 Assistance with Respiratory Ventilation, Less than 24 Consecutive Hours, Continuous Positive Airway Pressure (ICD-10-PCS; 2018-06-25)
DX: K85.90 Acute pancreatitis without necrosis or infection, unspecified (principal); J96.01 Acute respiratory failure with hypoxia; J96.02 Acute respiratory failure with hypercapnia; G92 Toxic encephalopathy; A41.9 Sepsis, unspecified organism; N17.9 Acute kidney failure, unspecified; Q44.4 Choledochal cyst; E87.2 Acidosis; E87.0 Hyperosmolality and hypernatremia; N39.0 Urinary tract infection, site not specified; M32.9 Systemic lupus erythematosus, unspecified; E03.9 Hypothyroidism, unspecified; E88.09 Other disorders of plasma-protein metabolism, not elsewhere classified; E83.51 Hypocalcemia; K76.0 Fatty (change of) liver, not elsewhere classified; I50.9 Heart failure, unspecified; R00.0 Tachycardia, unspecified; R74.0 Nonspecific elevation of levels of transaminase and lactic acid dehydrogenase [LDH]; R41.82 Altered mental status, unspecified; R10.9 Unspecified abdominal pain; Z86.39 Personal history of other endocrine, nutritional and metabolic disease; Z99.81 Dependence on supplemental oxygen
CPT/HCPCS: 31500; 36600; 71045; 74176; 74178; 74181; 78226; 80048; 80053; 80061; 80076; 81001; 82150; 82330; 82787; 82803; 83036; 83605; 83690; 83735; 83880; 84100; 84443; 85025; 86038; 86255; 86709; 86803; 87040; 87081; 87086; 87340; 93306; 94002; 94640; 94660; 94664; 97110; 97116; 97161; 97166; 97530; 97535

== ENCOUNTER 2018-07-14 22:50 | Inpatient (IN) | payer OTHER ==
[2018-07-14] MEDS: SOD CHLORIDE 0.9% 1,000 ML IV (23:33)
[2018-07-14 23:34] LABS: ADD MAN DIFF? NO
[2018-07-14 23:36] LABS: BASOPHIL # 0.1 10^3/ul (0.0-0.1); BASOPHILS % 0.5 % (0.0-2.0); EOSINOPHILS # 0.2 10^3/ul (0.0-0.5); HEMATOCRIT 30.6 % (37.0-47.0); HEMOGLOBIN 9.8 g/dl (12.0-16.0); LYMPHOCYTES # 1.2 10^3/ul (0.8-2.9); LYMPHOCYTES % 12.2 % (15.0-51.0); MEAN CORPUSCULAR HEMOGLOBIN 27.8 pg (29.0-33.0); MEAN CORPUSCULAR VOLUME 86.7 fl (82.0-101.0); MEAN PLATELET VOLUME 9.3 fl (7.4-10.4); MONOCYTE # 0.9 10^3/ul (0.3-0.9); MONOCYTES % 9.3 % (0.0-11.0); NEUTROPHIL # 7.6 10^3/ul (1.6-7.5); NEUTROPHILS % 75.2 % (39.0-77.0); PLATELET COUNT 344 10^3/UL (140-415); RED BLOOD COUNT 3.53 10^6/ul (4.20-5.40)
[2018-07-14 23:36] LABS: WHITE BLOOD COUNT 10.1 10^3/ul (4.8-10.8)
[2018-07-14 23:57] LABS: ALANINE AMINOTRANSFERASE 43 IU/L (13-69); ALBUMIN 3.5 g/dl (3.3-4.9); ALKALINE PHOSPHATASE 182 IU/L (42-121); ANION GAP 11 (5-13); ASPARTATE AMINO TRANSFERASE 35 IU/L (15-46); BILIRUBIN,INDIRECT 0.4 mg/dl (0-1.1); BILIRUBIN,TOTAL 0.4 mg/dl (0.2-1.3); BLOOD UREA NITROGEN 11 mg/dl (7-20); CALCIUM 9.9 mg/dl (8.4-10.2); CARBON DIOXIDE 31 mmol/L (21-31); CHLORIDE 95 mmol/L (97-110); Estimated GFR > 60 mL/min (>60); GLUCOSE 115 mg/dl (70-220); LIPASE 781 U/L (23-300); POTASSIUM 3.9 mmol/L (3.5-5.1); SODIUM 137 mmol/L (135-144)
[2018-07-15] MEDS: morphine 4 MG/ML VIAL IV (01:14)
[2018-07-15] MEDS: LIDOCAINE/MYLANTA 40 ML BTL PO (01:14)
[2018-07-15] MEDS: ONDANSETRON 4 MG INJ IV (01:14)
[2018-07-15] MEDS ORDERED: ONDANSETRON 4 MG INJ IV ×2 (01:30)
[2018-07-15] MEDS ORDERED: DOCUSATE SODIUM 100 MG CAP PO (01:30)
[2018-07-15] MEDS ORDERED: ACETAMINOPHEN 325 MG TAB PO (01:30)
[2018-07-15] MEDS ORDERED: NACL 0.9% 3 ML SYG IV (01:30)
[2018-07-15] MEDS ORDERED: HYDROmorphONE 0.5 MG/0.5 ML SYG IV (01:30)
[2018-07-15] MEDS: SOD CHLORIDE 0.9% 100 ML (02:08)
[2018-07-15] MEDS: IOHEXOL 300MG/ML 150 ML BTL (02:08)
[2018-07-15] MEDS: SOD CHLORIDE 0.9% 1,000 ML IV ×5 (03:55→21:30)
[2018-07-15] MEDS: FAMOTIDINE 20 MG INJ IV (04:42)
[2018-07-15 05:47] LABS: ADD MAN DIFF? NO
[2018-07-15 05:50] LABS: BASOPHIL # 0.1 10^3/ul (0.0-0.1); BASOPHILS % 0.6 % (0.0-2.0); EOSINOPHILS # 0.2 10^3/ul (0.0-0.5); EOSINOPHILS % 1.7 % (0.0-7.0); HEMATOCRIT 30.8 % (37.0-47.0); HEMOGLOBIN 9.6 g/dl (12.0-16.0); LYMPHOCYTES # 1.4 10^3/ul (0.8-2.9); LYMPHOCYTES % 15.1 % (15.0-51.0); MEAN CORPUSCULAR HEMOGLOBIN 27.4 pg (29.0-33.0); MEAN CORPUSCULAR HGB CONC 31.2 g/dl (32.0-37.0); MEAN CORPUSCULAR VOLUME 87.7 fl (82.0-101.0); MEAN PLATELET VOLUME 9.4 fl (7.4-10.4); MONOCYTE # 0.9 10^3/ul (0.3-0.9); MONOCYTES % 9.5 % (0.0-11.0); NEUTROPHIL # 6.5 10^3/ul (1.6-7.5); NEUTROPHILS % 72.1 % (39.0-77.0); PLATELET COUNT 368 10^3/UL (140-415); RED BLOOD COUNT 3.51 10^6/ul (4.20-5.40); RED CELL DISTRIBUTION WIDTH 12.9 % (11.5-14.5)
[2018-07-15 06:06] LABS: ALANINE AMINOTRANSFERASE 41 IU/L (13-69); ALBUMIN 3.3 g/dl (3.3-4.9); ALBUMIN/GLOBULIN RATIO 0.94; ALKALINE PHOSPHATASE 179 IU/L (42-121); ANION GAP 11 (5-13); ASPARTATE AMINO TRANSFERASE 34 IU/L (15-46); BILIRUBIN,INDIRECT 0.3 mg/dl (0-1.1); BILIRUBIN,TOTAL 0.3 mg/dl (0.2-1.3); BLOOD UREA NITROGEN 9 mg/dl (7-20); CALCIUM 9.5 mg/dl (8.4-10.2); CARBON DIOXIDE 31 mmol/L (21-31); CHLORIDE 100 mmol/L (97-110); CHOL/HDL RATIO 5.5 RATIO; CHOLESTEROL 134 mg/dl (100-200); CREATININE 0.53 mg/dl (0.44-1.00); Estimated GFR > 60 mL/min (>60); GLUCOSE 93 mg/dl (70-220); HDL CHOLESTEROL 24 mg/dl (37-92); LDL CHOLESTEROL,CALCULATED 90 mg/dl; POTASSIUM 4.2 mmol/L (3.5-5.1); SODIUM 142 mmol/L (135-144); TOTAL PROTEIN 6.8 g/dl (6.1-8.1); TRIGLYCERIDES 102 mg/dl (0-149)
[2018-07-15] MEDS: PANTOPRAZOLE 40 MG INJ IV ×2 (07:52→18:07)
[2018-07-15 07:55] LABS: HEMOGLOBIN A1C 5.8 % (0-5.9)
[2018-07-15] MEDS: ACETAMINOPHEN 325 MG TAB PO (18:07)
[2018-07-16] MEDS: SOD CHLORIDE 0.9% 1,000 ML IV ×3 (01:20→19:26)
[2018-07-16] MEDS: PANTOPRAZOLE 40 MG INJ IV ×2 (05:23→19:53)
[2018-07-16 05:54] LABS: MAGNESIUM 1.9 mg/dl (1.7-2.5)
[2018-07-16] MEDS: INFLUENZA VIRUS VACCINE 0.5 ML (DISPENSING) IM* (10:03)
[2018-07-16] MEDS: LIDOCAINE 100 MG SYRINGE (12:12)
[2018-07-16] MEDS: FENTAnyl 50 MCG/ML VIAL (12:12)
[2018-07-16] MEDS: PROPOFOL 40 ML (12:12)
[2018-07-16] MEDS: ACETAMINOPHEN 325 MG TAB PO (22:37)
[2018-07-17 05:17] LABS: ADD MAN DIFF? NO
[2018-07-17 05:18] LABS: WHITE BLOOD COUNT 8.6 10^3/ul (4.8-10.8)
[2018-07-17 05:18] LABS: BASOPHILS % 0.4 % (0.0-2.0); EOSINOPHILS # 0.1 10^3/ul (0.0-0.5); EOSINOPHILS % 1.5 % (0.0-7.0); HEMOGLOBIN 8.9 g/dl (12.0-16.0); LYMPHOCYTES # 0.9 10^3/ul (0.8-2.9); LYMPHOCYTES % 10.9 % (15.0-51.0); MEAN CORPUSCULAR HEMOGLOBIN 27.2 pg (29.0-33.0); MEAN CORPUSCULAR HGB CONC 31.8 g/dl (32.0-37.0); MEAN CORPUSCULAR VOLUME 85.6 fl (82.0-101.0); MEAN PLATELET VOLUME 9.6 fl (7.4-10.4); MONOCYTE # 0.7 10^3/ul (0.3-0.9); MONOCYTES % 8.2 % (0.0-11.0); NEUTROPHIL # 6.7 10^3/ul (1.6-7.5); NEUTROPHILS % 78.2 % (39.0-77.0); PLATELET COUNT 278 10^3/UL (140-415); RED BLOOD COUNT 3.27 10^6/ul (4.20-5.40); RED CELL DISTRIBUTION WIDTH 13.1 % (11.5-14.5)
[2018-07-17 05:39] LABS: ANION GAP 7 (5-13); BLOOD UREA NITROGEN 4 mg/dl (7-20); CALCIUM 8.3 mg/dl (8.4-10.2); CARBON DIOXIDE 28 mmol/L (21-31); CHLORIDE 104 mmol/L (97-110); CREATININE 0.46 mg/dl (0.44-1.00); Estimated GFR > 60 mL/min (>60); GLUCOSE 108 mg/dl (70-220); MAGNESIUM 1.9 mg/dl (1.7-2.5); POTASSIUM 3.2 mmol/L (3.5-5.1); SODIUM 139 mmol/L (135-144)
[2018-07-17] MEDS: PANTOPRAZOLE 40 MG INJ IV ×2 (05:40→17:39)
[2018-07-17] MEDS: BISACODYL (EC) 5 MG TAB PO (14:05)
[2018-07-17] MEDS: SOD CHLORIDE 0.9% 1,000 ML IV (17:20)
[2018-07-18 05:32] LABS: ANION GAP 8 (5-13); BLOOD UREA NITROGEN 2 mg/dl (7-20); CALCIUM 8.5 mg/dl (8.4-10.2); CARBON DIOXIDE 31 mmol/L (21-31); CHLORIDE 104 mmol/L (97-110); CREATININE 0.49 mg/dl (0.44-1.00); Estimated GFR > 60 mL/min (>60); GLUCOSE 111 mg/dl (70-220); POTASSIUM 3.2 mmol/L (3.5-5.1); SODIUM 143 mmol/L (135-144)
[2018-07-18] MEDS: PANTOPRAZOLE 40 MG INJ IV (06:07)
[2018-07-18] MEDS: SOD CHLORIDE 0.9% 1,000 ML IV (06:40)
[2018-07-18] MEDS: POTASSIUM CHLORIDE (SR) 20 MEQ TAB PO (11:30)
== END 2018-07-18 14:08 | disposition home or self-care (01) | DRG 439 ==
LOC: E/R 22:50 → MS1 07-15 01:21
PROC: 0DB68ZX Excision of Stomach, Via Natural or Artificial Opening Endoscopic, Diagnostic (ICD-10-PCS; principal; 2018-07-16 11:35)
DX: K85.00 Idiopathic acute pancreatitis without necrosis or infection (principal); K86.3 Pseudocyst of pancreas; K31.1 Adult hypertrophic pyloric stenosis; Q44.4 Choledochal cyst; K31.84 Gastroparesis; E03.9 Hypothyroidism, unspecified; N28.89 Other specified disorders of kidney and ureter; E83.51 Hypocalcemia; K76.0 Fatty (change of) liver, not elsewhere classified
CPT/HCPCS: 36415; 74177; 80048; 80053; 80061; 83036; 83690; 83735; 84443; 85025; 88305; 90686; 93005; 99285-25

== ENCOUNTER 2018-07-25 18:12 | Emergency (ER) | payer OTHER ==
[2018-07-25 21:08] LABS: URINE BLOOD (Dip) POC 2+ (NEGATIVE); URINE GLUCOSE (Dip) POC Negative (NEGATIVE); URINE KETONES (Dip) POC 4+ (NEGATIVE); URINE LEUKOCYTE EST (Dip) POC Trace (NEGATIVE); URINE NITRITE (Dip) POC Negative (NEGATIVE); URINE TOTAL PROTEIN POC 2+ (NEGATIVE)
[2018-07-25] MEDS: LIDOCAINE/MYLANTA 40 ML BTL PO (21:30)
[2018-07-25] MEDS: RANITIDINE 150 MG TAB PO (21:30)
[2018-07-25] MEDS: ONDANSETRON (ODT) 4 MG TAB ODT (21:30)
[2018-07-25 21:39] LABS: ADD MAN DIFF? NO
[2018-07-25 21:41] LABS: WHITE BLOOD COUNT 10.3 10^3/ul (4.8-10.8)
[2018-07-25 21:41] LABS: BASOPHILS % 0.3 % (0.0-2.0); EOSINOPHILS # 0.1 10^3/ul (0.0-0.5); EOSINOPHILS % 0.6 % (0.0-7.0); HEMATOCRIT 34.3 % (37.0-47.0); HEMOGLOBIN 10.8 g/dl (12.0-16.0); LYMPHOCYTES # 1.7 10^3/ul (0.8-2.9); LYMPHOCYTES % 16.7 % (15.0-51.0); MEAN CORPUSCULAR HEMOGLOBIN 27.1 pg (29.0-33.0); MEAN CORPUSCULAR HGB CONC 31.5 g/dl (32.0-37.0); MEAN CORPUSCULAR VOLUME 86.2 fl (82.0-101.0); MEAN PLATELET VOLUME 9.2 fl (7.4-10.4); MONOCYTE # 0.8 10^3/ul (0.3-0.9); MONOCYTES % 7.8 % (0.0-11.0); NEUTROPHIL # 7.7 10^3/ul (1.6-7.5); NEUTROPHILS % 74.2 % (39.0-77.0); PLATELET COUNT 456 10^3/UL (140-415); RED BLOOD COUNT 3.98 10^6/ul (4.20-5.40); RED CELL DISTRIBUTION WIDTH 13.4 % (11.5-14.5)
[2018-07-25 22:10] LABS: ALANINE AMINOTRANSFERASE 42 IU/L (13-69); ALBUMIN 3.7 g/dl (3.3-4.9); ALBUMIN/GLOBULIN RATIO 0.86; ALKALINE PHOSPHATASE 381 IU/L (42-121); ANION GAP 16 (5-13); ASPARTATE AMINO TRANSFERASE 43 IU/L (15-46); BILIRUBIN,INDIRECT 0.4 mg/dl (0-1.1); BILIRUBIN,TOTAL 0.4 mg/dl (0.2-1.3); BLOOD UREA NITROGEN 10 mg/dl (7-20); CALCIUM 9.4 mg/dl (8.4-10.2); CARBON DIOXIDE 29 mmol/L (21-31); CHLORIDE 95 mmol/L (97-110); CREATININE 0.59 mg/dl (0.44-1.00); Estimated GFR > 60 mL/min (>60); GLUCOSE 100 mg/dl (70-220); LIPASE 483 U/L (23-300); SODIUM 140 mmol/L (135-144)
[2018-07-25 22:21] LABS: TROPONIN-I < 0.012 ng/ml (0.000-0.120)
[2018-07-25 23:22] LABS: ADD UMIC YES; UR ASCORBIC ACID NEGATIVE (NEGATIVE); UR BACTERIA FEW /HPF (NONE SEEN); UR BILIRUBIN (Dip) 1+ mg/dL (NEGATIVE); UR BLOOD (Dip) 1+ mg/dL (NEGATIVE); UR CLARITY CLOUDY (CLEAR); UR COLOR AMBER (YELLOW); UR GLUCOSE (Dip) NEGATIVE (NEGATIVE); UR KETONES (Dip) 2+ mg/dL (NEGATIVE); UR LEUKOCYTE ESTERASE (Dip) 2+ Leu/ul (NEGATIVE); UR MUCUS MANY /HPF (NONE SEEN); UR NITRITE (Dip) NEGATIVE (NEGATIVE); UR RBC 15 /HPF (0-5); UR SPECIFIC GRAVITY (Dip) 1.026 (1.003-1.030); UR SQUAMOUS EPITHELIAL CELL MODERATE /HPF (FEW); UR TOTAL PROTEIN (Dip) 2+ mg/dl (NEGATIVE); UR UROBILINOGEN (Dip) 2+ mg/dL (NEGATIVE); UR WBC 119 /HPF (0-5)
== END 2018-07-26 00:24 | disposition home or self-care (01) ==
LOC: FTE 07-26 00:24
DX: R10.13 Epigastric pain (principal); R40.2412 Glasgow coma scale score 13-15, at arrival to emergency department; R11.2 Nausea with vomiting, unspecified
CPT/HCPCS: 36415; 76705; 80053; 81001; 81003; 83690; 84484; 85025; 93005; 99285-25